=== PATIENT | male | born 1955 | race Caucasian/White ===

== ENCOUNTER 2020-06-10 07:04 | Outpatient (REF) | payer MEDICARE, SELFPAY ==
[2020-06-10 08:15] LABS: Glucose Fasting 112 mg/dL (60-99)
[2020-06-10 08:46] LABS: Thyroid Stimulating Hormone 5.22 mIU/mL (0.32-4.0)
[2020-06-10 09:21] LABS: T4 Thyroxine 6.6 ug/dL (4.5-12.0)
[2020-06-10 09:41] LABS: Estimated Average Glucose 126 mg/dL; Hemoglobin A1C 158.3794 umol/L
== END 2020-06-10 07:05 | disposition home or self-care (01) ==
LOC: HO.LAB 07:04
PROVIDERS: PCP Internal Medicine; Visit Provider Internal Medicine
DX: R73.02 Impaired glucose tolerance (oral) (principal); R94.6 Abnormal results of thyroid function studies
CPT/HCPCS: 82947; 83036; 84436; 84443

== ENCOUNTER 2021-02-25 11:59 | Emergency (ER) | payer MEDICARE, SELFPAY ==
[2021-02-25] VITALS (7 sets, daily range): BP systolic 120–162; BP diastolic 64–93; PULSE 63–70; RESP 14–16; TEMP 36.6–36.7; O2SAT 95–100; BMI 33.7
--- NOTE | ~2021-02-25 | CT_ITS ---
EXAMINATION: CT HEAD WITHOUT CONTRAST (STROKE PROTOCOL) CLINICAL INFORMATION: Stroke protocol. Centered on segment of dizziness. COMPARISON: None TECHNIQUE: Contiguous axial imaging was performed from the skull base to vertex without intravenous administration of contrast. This CT examination was performed using dose optimization techniques as appropriate, variously including the following: *Automated exposure control *Adjustment of mA and/or kV according to patient size (this includes techniques or standardized protocols for targeted exams where dose is matched to indication/reason for exam; i.e. extremities or head) *Use of iterative reconstruction technique DLP: 752 mGy-cm FINDINGS: There is no intracranial hemorrhage, hematoma, or extra-axial fluid collection. The ventricles are normal in size. There is no hydrocephalus, edema, or mass effect. The monk-white matter differentiation appears symmetric. There is no acute infarct or mass lesion. The calvarium appears intact. There is no pneumocephalus or orbital emphysema. The visualized sinuses and middle ears and mastoid air cells show no significant mucosal thickening. There are no air-fluid levels. CT/CT head for stroke IMPRESSION: No acute intracranial process seen.. This critical result was discussed with Agnes Chou at 1:08 hours on 02/25/2021. It was ascertained that the content and urgency of the report was understood at the time of direct communication.
--- NOTE | ~2021-02-25 | XR_ITS ---
EXAMINATION: XR CHEST CLINICAL INFORMATION: Dizziness. COMPARISON: None TECHNIQUE: Frontal view of the chest was obtained. FINDINGS: The lungs are clear. The cardiomediastinal silhouette is normal in size. There is no pleural effusion or pneumothorax. No acute osseous abnormality. XR/XR chest 1V IMPRESSION: No acute cardiopulmonary findings.
--- NOTE | ~2021-02-25 | MR_ITS ---
EXAMINATION: MR BRAIN WITHOUT CONTRAST CLINICAL INFORMATION: Patient with sudden onset dizziness unable to ambulate due to dizzy. COMPARISON: Head CT 02/25/2021. TECHNIQUE: Multiplanar, multisequence imaging of the brain was performed without intravenous contrast. FINDINGS: There is no acute infarction, hemorrhage, mass, or extra-axial fluid collection. The ventricles are normal in size without hydrocephalus. A few minimal nonspecific foci of T2/FLAIR hyperintensity are seen in the cerebral white matter. The cerebellar tonsils are normally positioned. The major arterial flow voids are preserved at the skull base. The orbital contents appear normal. There are small amount of fluid in the mastoids. Mild paranasal sinus mucosal thickening is seen. MR/MR head/brain wo con IMPRESSION: No acute infarct, mass lesion, intracranial hemorrhage, or evidence of hydrocephalus.
--- NOTE | ~2021-02-25 | CT_ITS ---
EXAMINATION: CT ANGIOGRAM NECK WITH CONTRAST CT ANGIOGRAM BRAIN WITH CONTRAST CLINICAL INFORMATION: Sudden onset dizziness. COMPARISON: Noncontrast head CT performed just prior. TECHNIQUE: Test bolus sequences followed by intravenous administration 70 mL of Omnipaque 350. Helical imaging was performed in the axial plane from the thoracic inlet to the skull vertex. Delayed postcontrast imaging of the head was also performed. The data was processed at the learning technologist workstation for generation of MIP sequences. Angled MIPs and volume rendered reformatted images were also generated at an offline 3D workstation. Stenoses are assessed in accordance with NASCET criteria unless otherwise indicated. This CT examination was performed using dose optimization techniques as appropriate, variously including the following: *Automated exposure control *Adjustment of mA and/or kV according to patient size (this includes techniques or standardized protocols for targeted exams where dose is matched to indication/reason for exam; i.e. extremities or head) *Use of iterative reconstruction technique DLP: 2356 mGy-cm FINDINGS: Head CT: There is no intracranial hemorrhage, extra-axial collection, mass effect, or CT evidence of territorial infarction. No abnormal enhancement is seen on the postcontrast images. The ventricles are normal in size without hydrocephalus. The dural venous sinuses are normally opacified. The extracranial structures are within normal limits. Neck CTA: The aortic arch is patent. The great vessel origins are patent. The bilateral common and internal carotid arteries are patent. No stenosis is seen at the carotid bifurcations. Both vertebral arteries are patent throughout their cervical course. The right vertebral artery is minimally dominant. Head CTA: Significant motion artifact is seen at the level of the jena of [place] as well as more superiorly limiting evaluation of the intracranial arteries. The intradural segments of both vertebral arteries are patent. The basilar artery is patent. The mottler operator are patent. Mild atheromatous changes are seen along the carotid siphons without significant stenosis. The ACAs are patent. The MCAs are patent with symmetric collaterals. Within the limits of motion artifact, no moderate or large aneurysm is seen. The dural venous sinuses appear grossly patent. Non-vascular findings: The cervical soft tissues are within normal limits. Bilateral palatine tonsilloliths are seen. A mildly enlarged right level 3 lymph node is seen. The upper lungs are clear. Mild degenerative changes are seen in the spine. CT/CT angio head neck stroke IMPRESSION: CT head: No intracranial hemorrhage or large acute infarction. No enhancing lesion. CTA neck: No hemodynamically significant stenosis in the major arteries of the neck. CTA head: Somewhat limited evaluation due to motion artifact. Within these limits, no occlusion, stenosis, or moderate or large sized aneurysm is seen. Additional findings: Incidentally noted mildly enlarged right level 3 lymph node. Consider clinical follow-up. This critical result was discussed with BISI Esparza on 02/25/2021 1:28 PM, and it was ascertained that the content and urgency of the report was understood at the time of direct communication.
--- NOTE | 2021-02-25 12:48 | ECG_ITS ---
Test Reason : DIZZINESS Blood Pressure : / mmHG Vent. Rate : 063 BPM Atrial Rate : 063 BPM P-R Int : 202 ms QRS Dur : 096 ms QT Int : 432 ms P-R-T Axes : -04 015 018 degrees QTc Int : 442 ms Normal sinus rhythm Normal ECG No previous ECGs available Referred By: Agnes Chou Electronically Signed By:Khang Crespo
--- NOTE | 2021-02-25 13:15 | ED_ITS ---
HPI - Dizziness General Chief Complaint: Dizziness <BISI Esparza Last Filed: 02/25/21 20:52> Stated Complaint: NAUSEA AND VOMITING <BISI Esparza Last Filed: 02/25/21 20:52> Time Seen by Provider: 02/25/21 12:41 <BISI Esparza Last Filed: 02/25/21 20:52> Source: patient and EMS <BISI Esparza Last Filed: 02/25/21 20:52> Mode of arrival: EMS <BISI Esparza Last Filed: 02/25/21 20:52> Limitations: no limitations <BISI Esparza Last Filed: 02/25/21 20:52> History of Present Illness HPI Narrative: 65-year-old male with a past medical history of BPH and obesity not on any blood thinners presenting to the ED via EMS after reports of sudden onset of dizziness while he was making a copy of a check while he was at work approximately 10:00 prior to arrival with associated nausea/vomiting. He reports that he feels like he is going to fall over. He reports that his symptoms improved mildly with laying down keeping his eyes closed. He reports once he opens his eyes or tries to stand up his dizziness worsens. He denies any headaches, recent head trauma or falls, changes in vision, neck pain/stiffness, chest pain, shortness of breath, dyspnea on exertion, orthopnea, chest pain, abdominal pain, back pain, palpitations, lower extremity edema or any other symptoms complaints or concerns at this time. He denies taking any medications. <BISI Esparza Last Filed: 02/25/21 20:52> MD elicited complaint: dizziness <BISI Esparza Last Filed: 02/25/21 20:52> Onset (ago): hour(s) (Started around 10:00 prior to arrival) <BISI Esparza Last Filed: 02/25/21 20:52> Timing: sudden onset <BISI Esparza Last Filed: 02/25/21 20:52> Severity: severe <BISI Esparza Last Filed: 02/25/21 20:52> Description: sense of movement, room spinning and lightheadedness <BISI Esparza Last Filed: 02/25/21 20:52> History of similar symptoms: No <BISI Esparza Last Filed: 02/25/21 20:52> Exacerbating factors: keeping eyes open <BISI Esparza Last Filed: 02/25/21 20:52> Relieving factors: remaining still, rest, lying down and keeping eyes closed <BISI Esparza Last Filed: 02/25/21 20:52> Associated symptoms: nausea and vomiting <BISI Esparza Last Filed: 02/25/21 20:52> Related Data Home Medications: Previous Rx's Medication Instructions Recorded ferrous sulfate 325 mg PO DAILY #30 tab 02/25/21 meclizine 50 mg PO DAILY PRN #20 tab 02/25/21 ondansetron HCl [Zofran] 4 mg PO Q8H PRN #14 tab 02/25/21 <BISI Esparza Last Filed: 02/25/21 20:52> Allergies/Adverse Reactions: Allergies Allergy/AdvReac Type Severity Reaction Status Date / Time No Known Allergies Allergy Verified 06/16/20 09:19 <BISI Esparza Last Filed: 02/25/21 20:52> Review of Systems Review of Systems: Constitutional : No Fever, No Chills, No Night Sweats, No Fatigue, No Malaise ENT/Mouth : No Ear Pain, No Nasal Congestion, No Sinus Pain, No sore throat, No Rhinorrhea Eyes: No Eye Pain, No Swelling, No Redness, No Foreign Body, No Discharge, No Vision Changes Cardiovascular : No Chest Pain, No SOB, No Dyspnea on Exertion, No Orthopnea, No Palpitations Respiratory : No Cough, No Sputum, No Wheezing, No Dyspnea Gastrointestinal : Positive nausea/vomiting, No Diarrhea, No Constipation, No abdominal Pain, No Hematochezia, No Melena Genitourinary : No Dysuria, No Urinary Frequency, No Urinary Incontinence, No Urgency, No Flank Pain Musculoskeletal : No joint pain, No Myalgias Skin : No lacerations Neuro : Positive dizziness, No Focal weakness, no general weakness, No Numbness, No Paresthesias, No Loss of Consciousness, No Headache <BISI Esparza Last Filed: 02/25/21 20:52> Yes all other systems are reviewed and are negative <BISI Esparza - Last Filed: 02/25/21 20:52> [facility] Past Medical History Attestation statement: The following information was validated with the patient. <BISI Esparza - Last Filed: 02/25/21 20:52> Medical History: Medical History BPH (benign prostatic hyperplasia) Obesity (BMI 30-39.9) <BISI Esparza - Last Filed: 02/25/21 20:52> Surgical History: Surgical History No pertinent past surgical history <BISI Esparza - Last Filed: 02/25/21 20:52> Family History Family History: Family History Father No problems noted. Mother Hypertension Diabetes Sister Breast cancer <BISI Esparza - Last Filed: 02/25/21 20:52> Social History Social History: Social History Advance Directives: Yes Advance Directives Information Provided: Yes Advance Directives on File: No <BISI Esparza - Last Filed: 02/25/21 20:52> Physical Exam Vital Signs: Vital Signs: Last Vital Signs Temp 98.0 F 02/25/21 18:40 Pulse 67 02/25/21 18:40 Resp 14 02/25/21 18:40 BP 146/80 H 02/25/21 18:40 Pulse Ox 98 02/25/21 18:40 Body Mass Index 33.7 Vital signs have been reviewed as normal and appeared to be correct. Blood pressure normal. Heart rate normal. Respiration rate normal. Temperature normal. Oxygen saturation normal. <BISI Esparza - Last Filed: 02/25/21 20:52> Vital Signs: Last Vital Signs Temp 98.0 F 02/25/21 18:40 Pulse 67 02/25/21 18:40 Resp 14 02/25/21 18:40 BP 146/80 H 02/25/21 18:40 Pulse Ox 98 02/25/21 18:40 Body Mass Index 33.7 <Cm Miller MD - Last Filed: 02/25/21 13:33> Appearance: Alert. Oriented X3. No acute distress. Head: Normal external exam. Normocephalic. Atraumatic. Able to rotate head bilaterally. Eyes: PERRLA. EOMI. Positive horizontal nystagmus noted. Conjunctiva and sclera normal. Eyelids normal. Corneal reflex normal. ENT: EAC normal. TM's Normal. Hearing normal. Pharynx normal. Uvula midline. tongue midline. Moist mucous membranes. No trismus noted. No drooling noted. No muffled voice noted. No nystagmus noted. Neck: Normal inspection. Neck supple. FROM. No adenopathy. Trachea midline. Thyroid Normal. No meningeal signs. No neck mass noted. CVS: Normal heart rate and rhythm. Heart sound normal. No murmurs noted. Pulses normal throughout. Respiratory: No respiratory distress. Painless inspiration. Breath sounds normal. No wheezes/rales/rhonchi noted. Chest nontender. No accessory muscle usage noted or decreased air movement noted. Abdomen: Soft and nontender. Bowel sounds normal in all 4 quadrants. No distention noted. No organomegaly noted. No visible injury noted. Back: No CVA tenderness. Full range of motion noted. Skin: Skin warm and dry. Normal skin color. Normal skin turgor. No rashes/lesions/lacerations noted. Extremities: No lower extremity edema. Extremities exhibit normal range of motion. Extremities nontender. Able to shrug shoulders bilaterally and keep up against resistance. Neuro: Oriented X 3. No motor deficit. No sensory deficit. Reflexes normal. Moving all extremities. No focal motor deficits. Cranial nerves II-XI intact bilaterally. Facial strength normal. Normal cognition. Speech normal. Strength 5/5 throughout. No pronator drift. No tremor noted. No fasciculations noted. No rigidity noted. Muscle tone normal throughout. No asterixis noted. [id number] test normal. Heel to mena test normal. Hand drop from overhead Misses face. Unable to test gait due to patient reporting he is too dizzy to stand up and open his eyes to try to ambulate. NIHSS score 0. <BISI Esparza - Last Filed: 02/25/21 20:52> NIH Stroke Scale Internal: Initial- Upon Arrival <Agnes Chou PA - Last Filed: 02/25/21 20:52> Time: 12:48 <Agnes Chou PA - Last Filed: 02/25/21 20:52> Level of Consciousness: Alert <Agnes Chou PA - Last Filed: 02/25/21 20:52> Level of Consciousness Questions: Answers both questions correctly <Agnes Chou PA - Last Filed: 02/25/21 20:52> Level of Consciousness Commands: Performs both tasks correctly <Agnesino Chou PA - Last Filed: 02/25/21 20:52> Best Gaze: Normal <Agnes Chou PA - Last Filed: 02/25/21 20:52> Visual: No visual loss <Agnes Chou PA - Last Filed: 02/25/21 20:52> Facial Palsy: Normal <Agnes Chou PA - Last Filed: 02/25/21 20:52> Motor Arm (Right): No drift <Agnesino Chou PA - Last Filed: 02/25/21 20:52> Motor Arm (Left): No drift <Agnes Chou, PA - Last Filed: 02/25/21 20:52> Motor Leg (Right): No drift <Agnes Chou, PA - Last Filed: 02/25/21 20:52> Motor Leg (Left): No drift <Agnes Chou, PA - Last Filed: 02/25/21 20:52> Limb Ataxia: Absent <Agnes Chou PA - Last Filed: 02/25/21 20:52> Sensory: Normal <Agnes Chou, PA - Last Filed: 02/25/21 20:52> Best Language: No aphasia <Agnes Chou PA - Last Filed: 02/25/21 20:52> Dysarthia: Normal <Agnes Chou PA - Last Filed: 02/25/21 20:52> Extinction and Inattention: No abnormality <Agnes Chou PA - Last Filed: 02/25/21 20:52> Score: 0 <Agnes Chou PA - Last Filed: 02/25/21 20:52> Course Course Course Narrative: 12:48am - 65-year-old male with a past medical history of BPH and obesity not on any blood thinners presenting to the ED via EMS after reports of sudden onset of dizziness while he was making a copy of a check while he was at work approximately 10:00 prior to arrival with associated nausea/vomiting. He reports that he feels like he is going to fall over. He reports that his symptoms improved mildly with laying down keeping his eyes closed. He reports once he opens his eyes or tries to stand up his dizziness worsens. - On Exam patient is alert and oriented x3. Not in any acute distress. Laying on the stretcher with his eyes closed pupils are equal and reactive to light. Extraocular movements are intact. Noted to have horizontal nystagmus. No focal neuro deficits are noted. NIH SS score is otherwise 0. Patient has non disabling symptoms patient has a normal heel to mena test and the rest of his neuro exam is within normal limits. Plan: Labs, CT brain for strok, CTA head/neck for stroke, EKG. Provide a L of IVF's, 50mg of meclizine, 5 mg of Valium PO, 4 mg of Zofran then re-evaluate <BISI Esparza - Last Filed: 02/25/21 20:52> Reevaluation(s) Reevaluation #1: - CT head of brain for stroke negative for any acute processes. CTA of head and neck for stroke negative for any acute processes. - EKG is normal sinus rhythm no acute ischemic change are noted. - chest x-ray within normal limits no acute processes noted. - awaiting labs at this time patient most likely positional vertigo will re- evaluate. <BISI Esparza - Last Filed: 02/25/21 20:52> I have discussed the case and management with the LUIS MIGUEL. Patient with positive horizontal nystagmus and barrone. Will treat as BPV. <Cm Miller MD - Last Filed: 02/25/21 13:33> Time: 13:35 <BISI Esparza - Last Filed: 02/25/21 20:52> 13:32 <Cm Miller MD - Last Filed: 02/25/21 13:33> Reevaluation #2: - white blood cell count 26038. Mild anemia. All other labs are within normal limits. COVID swab negative. - orthostatic vitals negative - at this time patient reported mild improvement with the meclizine/Valium and Zofran although when trying to ambulate the patient he felt like he was going to fall over and was unable to ambulate therefore laid him back down and at this time will obtain a brain MRI to evaluate possible stroke versus vertigo although I believe this is more vertigo than stroke due to CT scan of brain and CTA of head and neck were within normal limits and patient had pain in wide vasculature. Patient and family at bedside understand and agree with this plan. <BISI Esparza - Last Filed: 02/25/21 20:52> Time: 14:44 <BISI Esparza - Last Filed: 02/25/21 20:52> Reevaluation #3: - MRI of brain negative for any acute infarcts, mass lesions, intracranial hemorrhage or evidence of hydrocephalus. Therefore most likely patient has ve rtigo will DC home with meclizine and symptomatic treatment instructions return if any new or worsening symptoms to follow up with primary care provider. Patient understands agrees with this plan <BISI Esparza - Last Filed: 02/25/21 20:52> Time: 20:42 <BISI Esparza - Last Filed: 02/25/21 20:52> MDM - Dizziness Medical Records Attestation: I reviewed the patient's medical records. <BISI Esparza - Last Filed: 02/25/21 20:52> Lab Data Attestation: I reviewed the patient's lab results. <BISI Esparza - Last Filed: 02/25/21 20:52> Result diagrams: : 02/25/21 13:29 02/25/21 13:29 <BISI Esparza - Last Filed: 02/25/21 20:52> Labs: Lab Results 02/25/21 02/25/21 02/25/21 Range/Units 13:29 13:29 13:29 WBC 12.1 H (4.8-10.8) X10*3/uL RBC 4.38 L (4.60-5.80) X10*6/uL Hgb 13.4 L (14.0-18.0) g/dl Hct 41.0 L (42-52) % MCV 93.6 (80-98) fL MCH 30.6 (27.0-33.0) pg MCHC 32.7 (31.0-36.0) g/dl RDW 13.6 (11.0-16.0) % Plt Count 270 (160-400) X10*3/uL MPV 9.7 (9.4-12.4) fL Immature Gran % (Auto) 0.7 H (0.0-0.4) % Neut % (Auto) 80.8 H (45-73) % Lymph % (Auto) 10.4 L (20-40) % [place] % (Auto) 6.9 (2-11) % Eos % (Auto) 0.7 (0-4) % Baso % (Auto) 0.5 (0-2) % Lymph # (Auto) 1.3 (1.2-4.9) X10*3/uL [place] # (Auto) 0.8 (0.1-1.2) X10*3/uL Eos # (Auto) 0.1 (0.0-0.4) X10*3/uL Baso # (Auto) 0.1 (0.0-0.2) X10*3/uL Abs Immat Gran (auto) 0.08 H (0.00-0.03) X10*3/uL Absolute Neuts (auto) 9.8 H (2.0-8.3) X10*3/uL Absolute Nucleated RBC 0.000 (0.0-0.012) X10*3/uL Nucleated RBC % (auto) 0.0 (0.0-0.2) /100WBC PT 12.3 (9.9-13.0) SEC INR 1.1 (0.9-1.1) Sodium (135-145) mmol/L Potassium (3.3-5.1) mmol/L Chloride (96-108) mmol/L Carbon Dioxide (22-29) mmol/L Anion Gap (12-20) BUN (9-16) mg/dL Creatinine (0.5-1.4) mg/dL Estim Creat Clear Calc Estimated GFR Random Glucose (60-115) mg/dL Calcium (8.4-10.2) mg/dL Magnesium 2.2 (1.6-2.6) mg/dL Total Bilirubin (0.0-1.0) mg/dL AST (5-37) U/L ALT (0-40) U/L Alkaline Phosphatase (39-117) U/L Troponin I High Sens (<3.5-35.0) ng/L B-Natriuretic Peptide (<100) pg/mL Total Protein (6.5-8.0) g/dL Albumin (3.5-5.0) g/dL Urine Color Urine Appearance Urine pH (5.0-8.0) Ur Specific [place] (1.005-1.025) Urine Protein (NEG-TRACE) MG/DL Urine Glucose (UA) (NEG) MG/DL Urine Ketones (NEG) MG/DL Urine Blood (NEG) Urine Nitrite (NEG) Ur Leukocyte Esterase (NEG) Urine Opiates Screen (Not Detect) Ur Barbiturates Screen (Not Detect) Ur Phencyclidine Scrn (Not Detect) Ur Amphetamines Screen (Not Detect) U Benzodiazepines Scrn (Not Detect) Urine Cocaine Screen (Not Detect) U Marijuana (THC) Screen (Not Detect) COVID-19 ([facility]) (Negative) COVID-19 Clin Com 02/25/21 02/25/21 02/25/21 Range/Units 13:29 13:29 13:29 WBC (4.8-10.8) X10*3/uL RBC (4.60-5.80) X10*6/uL Hgb (14.0-18.0) g/dl Hct (42-52) % MCV (80-98) fL MCH (27.0-33.0) pg MCHC (31.0-36.0) g/dl RDW (11.0-16.0) % Plt Count (160-400) X10*3/uL MPV (9.4-12.4) fL Immature Gran % (Auto) (0.0-0.4) % Neut % (Auto) (45-73) % Lymph % (Auto) (20-40) % [place] % (Auto) (2-11) % Eos % (Auto) (0-4) % Baso % (Auto) (0-2) % Lymph # (Auto) (1.2-4.9) X10*3/uL [place] # (Auto) (0.1-1.2) X10*3/uL Eos # (Auto) (0.0-0.4) X10*3/uL Baso # (Auto) (0.0-0.2) X10*3/uL Abs Immat Gran (auto) (0.00-0.03) X10*3/uL Absolute Neuts (auto) (2.0-8.3) X10*3/uL Absolute Nucleated RBC (0.0-0.012) X10*3/uL Nucleated RBC % (auto) (0.0-0.2) /100WBC PT (9.9-13.0) SEC INR (0.9-1.1) Sodium 138 (135-145) mmol/L Potassium 4.2 (3.3-5.1) mmol/L Chloride 107 (96-108) mmol/L Carbon Dioxide 23 (22-29) mmol/L Anion Gap 12 (12-20) BUN 14 (9-16) mg/dL Creatinine 0.95 (0.5-1.4) mg/dL Estim Creat Clear Calc 92.2 Estimated GFR > 60 Random Glucose 105 (60-115) mg/dL Calcium 8.7 (8.4-10.2) mg/dL Magnesium (1.6-2.6) mg/dL Total Bilirubin 0.5 (0.0-1.0) mg/dL AST 14 (5-37) U/L ALT 13 (0-40) U/L Alkaline Phosphatase 64 (39-117) U/L Troponin I High Sens < 3.5 (<3.5-35.0) ng/L B-Natriuretic Peptide 25 (<100) pg/mL Total Protein 6.5 (6.5-8.0) g/dL Albumin 3.7 (3.5-5.0) g/dL Urine Color Urine Appearance Urine pH (5.0-8.0) Ur Specific [place] (1.005-1.025) Urine Protein (NEG-TRACE) MG/DL Urine Glucose (UA) (NEG) MG/DL Urine Ketones (NEG) MG/DL Urine Blood (NEG) Urine Nitrite (NEG) Ur Leukocyte Esterase (NEG) Urine Opiates Screen (Not Detect) Ur Barbiturates Screen (Not Detect) Ur Phencyclidine Scrn (Not Detect) Ur Amphetamines Screen (Not Detect) U Benzodiazepines Scrn (Not Detect) Urine Cocaine Screen (Not Detect) U Marijuana (THC) Screen (Not Detect) COVID-19 ([facility]) (Negative) COVID-19 Clin Com 02/25/21 02/25/21 02/25/21 Range/Units 13:29 14:30 14:30 WBC (4.8-10.8) X10*3/uL RBC (4.60-5.80) X10*6/uL Hgb (14.0-18.0) g/dl Hct (42-52) % MCV (80-98) fL MCH (27.0-33.0) pg MCHC (31.0-36.0) g/dl RDW (11.0-16.0) % Plt Count (160-400) X10*3/uL MPV (9.4-12.4) fL Immature Gran % (Auto) (0.0-0.4) % Neut % (Auto) (45-73) % Lymph % (Auto) (20-40) % [place] % (Auto) (2-11) % Eos % (Auto) (0-4) % Baso % (Auto) (0-2) % Lymph # (Auto) (1.2-4.9) X10*3/uL [place] # (Auto) (0.1-1.2) X10*3/uL Eos # (Auto) (0.0-0.4) X10*3/uL Baso # (Auto) (0.0-0.2) X10*3/uL Abs Immat Gran (auto) (0.00-0.03) X10*3/uL Absolute Neuts (auto) (2.0-8.3) X10*3/uL Absolute Nucleated RBC (0.0-0.012) X10*3/uL Nucleated RBC % (auto) (0.0-0.2) /100WBC PT (9.9-13.0) SEC INR (0.9-1.1) Sodium (135-145) mmol/L Potassium (3.3-5.1) mmol/L Chloride (96-108) mmol/L Carbon Dioxide (22-29) mmol/L Anion Gap (12-20) BUN (9-16) mg/dL Creatinine (0.5-1.4) mg/dL Estim Creat Clear Calc Estimated GFR Random Glucose (60-115) mg/dL Calcium (8.4-10.2) mg/dL Magnesium (1.6-2.6) mg/dL Total Bilirubin (0.0-1.0) mg/dL AST (5-37) U/L ALT (0-40) U/L Alkaline Phosphatase (39-117) U/L Troponin I High Sens (<3.5-35.0) ng/L B-Natriuretic Peptide (<100) pg/mL Total Protein (6.5-8.0) g/dL Albumin (3.5-5.0) g/dL Urine Color YELLOW Urine Appearance CLEAR Urine pH 7.0 (5.0-8.0) Ur Specific [place] 1.010 (1.005-1.025) Urine Protein NEG (NEG-TRACE) MG/DL Urine Glucose (UA) NEG (NEG) MG/DL Urine Ketones NEG (NEG) MG/DL Urine Blood NEG (NEG) Urine Nitrite NEG (NEG) Ur Leukocyte Esterase NEG (NEG) Urine Opiates Screen Not Detected (Not Detect) Ur Barbiturates Screen Not Detected (Not Detect) Ur Phencyclidine Scrn Not Detected (Not Detect) Ur Amphetamines Screen Not Detected (Not Detect) U Benzodiazepines Scrn Not Detected (Not Detect) Urine Cocaine Screen Not Detected (Not Detect) U Marijuana (THC) Screen Not Detected (Not Detect) COVID-19 ([facility]) Negative (Negative) COVID-19 Clin Com See Note <BISI Esparza - Last Filed: 02/25/21 20:52> Lab Results 02/25/21 02/25/21 02/25/21 Range/Units 13:29 13:29 13:29 WBC 12.1 H (4.8-10.8) X10*3/uL RBC 4.38 L (4.60-5.80) X10*6/uL Hgb 13.4 L (14.0-18.0) g/dl Hct 41.0 L (42-52) % MCV 93.6 (80-98) fL MCH 30.6 (27.0-33.0) pg MCHC 32.7 (31.0-36.0) g/dl RDW 13.6 (11.0-16.0) % Plt Count 270 (160-400) X10*3/uL MPV 9.7 (9.4-12.4) fL Immature Gran % (Auto) 0.7 H (0.0-0.4) % Neut % (Auto) 80.8 H (45-73) % Lymph % (Auto) 10.4 L (20-40) % [place] % (Auto) 6.9 (2-11) % Eos % (Auto) 0.7 (0-4) % Baso % (Auto) 0.5 (0-2) % Lymph # (Auto) 1.3 (1.2-4.9) X10*3/uL [place] # (Auto) 0.8 (0.1-1.2) X10*3/uL Eos # (Auto) 0.1 (0.0-0.4) X10*3/uL Baso # (Auto) 0.1 (0.0-0.2) X10*3/uL Abs Immat Gran (auto) 0.08 H (0.00-0.03) X10*3/uL Absolute Neuts (auto) 9.8 H (2.0-8.3) X10*3/uL Absolute Nucleated RBC 0.000 (0.0-0.012) X10*3/uL Nucleated RBC % (auto) 0.0 (0.0-0.2) /100WBC PT 12.3 (9.9-13.0) SEC INR 1.1 (0.9-1.1) Sodium (135-145) mmol/L Potassium (3.3-5.1) mmol/L Chloride (96-108) mmol/L Carbon Dioxide (22-29) mmol/L Anion Gap (12-20) BUN (9-16) mg/dL Creatinine (0.5-1.4) mg/dL Estim Creat Clear Calc Estimated GFR Random Glucose (60-115) mg/dL Calcium (8.4-10.2) mg/dL Magnesium 2.2 (1.6-2.6) mg/dL Total Bilirubin (0.0-1.0) mg/dL AST (5-37) U/L ALT (0-40) U/L Alkaline Phosphatase (39-117) U/L Troponin I High Sens (<3.5-35.0) ng/L B-Natriuretic Peptide (<100) pg/mL Total Protein (6.5-8.0) g/dL Albumin (3.5-5.0) g/dL Urine Color Urine Appearance Urine pH (5.0-8.0) Ur Specific [place] (1.005-1.025) Urine Protein (NEG-TRACE) MG/DL Urine Glucose (UA) (NEG) MG/DL Urine Ketones (NEG) MG/DL Urine Blood (NEG) Urine Nitrite (NEG) Ur Leukocyte Esterase (NEG) Urine Opiates Screen (Not Detect) Ur Barbiturates Screen (Not Detect) Ur Phencyclidine Scrn (Not Detect) Ur Amphetamines Screen (Not Detect) U Benzodiazepines Scrn (Not Detect) Urine Cocaine Screen (Not Detect) U Marijuana (THC) Screen (Not Detect) COVID-19 ([facility]) (Negative) COVID-19 Clin Com 02/25/21 02/25/21 02/25/21 Range/Units 13:29 13:29 13:29 WBC (4.8-10.8) X10*3/uL RBC (4.60-5.80) X10*6/uL Hgb (14.0-18.0) g/dl Hct (42-52) % MCV (80-98) fL MCH (27.0-33.0) pg MCHC (31.0-36.0) g/dl RDW (11.0-16.0) % Plt Count (160-400) X10*3/uL MPV (9.4-12.4) fL Immature Gran % (Auto) (0.0-0.4) % Neut % (Auto) (45-73) % Lymph % (Auto) (20-40) % [place] % (Auto) (2-11) % Eos % (Auto) (0-4) % Baso % (Auto) (0-2) % Lymph # (Auto) (1.2-4.9) X10*3/uL [place] # (Auto) (0.1-1.2) X10*3/uL Eos # (Auto) (0.0-0.4) X10*3/uL Baso # (Auto) (0.0-0.2) X10*3/uL Abs Immat Gran (auto) (0.00-0.03) X10*3/uL Absolute Neuts (auto) (2.0-8.3) X10*3/uL Absolute Nucleated RBC (0.0-0.012) X10*3/uL Nucleated RBC % (auto) (0.0-0.2) /100WBC PT (9.9-13.0) SEC INR (0.9-1.1) Sodium 138 (135-145) mmol/L Potassium 4.2 (3.3-5.1) mmol/L Chloride 107 (96-108) mmol/L Carbon Dioxide 23 (22-29) mmol/L Anion Gap 12 (12-20) BUN 14 (9-16) mg/dL Creatinine 0.95 (0.5-1.4) mg/dL Estim Creat Clear Calc 92.2 Estimated GFR > 60 Random Glucose 105 (60-115) mg/dL Calcium 8.7 (8.4-10.2) mg/dL Magnesium (1.6-2.6) mg/dL Total Bilirubin 0.5 (0.0-1.0) mg/dL AST 14 (5-37) U/L ALT 13 (0-40) U/L Alkaline Phosphatase 64 (39-117) U/L Troponin I High Sens < 3.5 (<3.5-35.0) ng/L B-Natriuretic Peptide 25 (<100) pg/mL Total Protein 6.5 (6.5-8.0) g/dL Albumin 3.7 (3.5-5.0) g/dL Urine Color Urine Appearance Urine pH (5.0-8.0) Ur Specific [place] (1.005-1.025) Urine Protein (NEG-TRACE) MG/DL Urine Glucose (UA) (NEG) MG/DL Urine Ketones (NEG) MG/DL Urine Blood (NEG) Urine Nitrite (NEG) Ur Leukocyte Esterase (NEG) Urine Opiates Screen (Not Detect) Ur Barbiturates Screen (Not Detect) Ur Phencyclidine Scrn (Not Detect) Ur Amphetamines Screen (Not Detect) U Benzodiazepines Scrn (Not Detect) Urine Cocaine Screen (Not Detect) U Marijuana (THC) Screen (Not Detect) COVID-19 ([facility]) (Negative) COVID-19 Clin Com 02/25/21 02/25/21 02/25/21 Range/Units 13:29 14:30 14:30 WBC (4.8-10.8) X10*3/uL RBC (4.60-5.80) X10*6/uL Hgb (14.0-18.0) g/dl Hct (42-52) % MCV (80-98) fL MCH (27.0-33.0) pg MCHC (31.0-36.0) g/dl RDW (11.0-16.0) % Plt Count (160-400) X10*3/uL MPV (9.4-12.4) fL Immature Gran % (Auto) (0.0-0.4) % Neut % (Auto) (45-73) % Lymph % (Auto) (20-40) % [place] % (Auto) (2-11) % Eos % (Auto) (0-4) % Baso % (Auto) (0-2) % Lymph # (Auto) (1.2-4.9) X10*3/uL [place] # (Auto) (0.1-1.2) X10*3/uL Eos # (Auto) (0.0-0.4) X10*3/uL Baso # (Auto) (0.0-0.2) X10*3/uL Abs Immat Gran (auto) (0.00-0.03) X10*3/uL Absolute Neuts (auto) (2.0-8.3) X10*3/uL Absolute Nucleated RBC (0.0-0.012) X10*3/uL Nucleated RBC % (auto) (0.0-0.2) /100WBC PT (9.9-13.0) SEC INR (0.9-1.1) Sodium (135-145) mmol/L Potassium (3.3-5.1) mmol/L Chloride (96-108) mmol/L Carbon Dioxide (22-29) mmol/L Anion Gap (12-20) BUN (9-16) mg/dL Creatinine (0.5-1.4) mg/dL Estim Creat Clear Calc Estimated GFR Random Glucose (60-115) mg/dL Calcium (8.4-10.2) mg/dL Magnesium (1.6-2.6) mg/dL Total Bilirubin (0.0-1.0) mg/dL AST (5-37) U/L ALT (0-40) U/L Alkaline Phosphatase (39-117) U/L Troponin I High Sens (<3.5-35.0) ng/L B-Natriuretic Peptide (<100) pg/mL Total Protein (6.5-8.0) g/dL Albumin (3.5-5.0) g/dL Urine Color YELLOW Urine Appearance CLEAR Urine pH 7.0 (5.0-8.0) Ur Specific [place] 1.010 (1.005-1.025) Urine Protein NEG (NEG-TRACE) MG/DL Urine Glucose (UA) NEG (NEG) MG/DL Urine Ketones NEG (NEG) MG/DL Urine Blood NEG (NEG) Urine Nitrite NEG (NEG) Ur Leukocyte Esterase NEG (NEG) Urine Opiates Screen Not Detected (Not Detect) Ur Barbiturates Screen Not Detected (Not Detect) Ur Phencyclidine Scrn Not Detected (Not Detect) Ur Amphetamines Screen Not Detected (Not Detect) U Benzodiazepines Scrn Not Detected (Not Detect) Urine Cocaine Screen Not Detected (Not Detect) U Marijuana (THC) Screen Not Detected (Not Detect) COVID-19 ([facility]) Negative (Negative) COVID-19 Clin Com See Note <Cm Miller MD - Last Filed: 02/25/21 13:33> Imaging Data CT scan - head: Attestation: I personally reviewed and interpreted this imaging study as follows: <BISI Esparza - Last Filed: 02/25/21 20:52> Radiologist's impression: FINDINGS: There is no intracranial hemorrhage, hematoma, or extra-axial fluid collection. The ventricles are normal in size. There is no hydrocephalus, edema, or mass effect. The monk-white matter differentiation appears symmetric. There is no acute infarct or mass lesion. The calvarium appears intact. There is no pneumocephalus or orbital emphysema. The visualized sinuses and middle ears and mastoid air cells show no significant mucosal thickening. There are no air-fluid levels. CT/CT head for stroke IMPRESSION: No acute intracranial process seen.. This critical result was discussed with Agnes Chou at 1:08 hours on 02/25/2021. It was ascertained that the content and urgency of the report was understood at the time of direct communication. <BISI Esparza - Last Filed: 02/25/21 20:52> Chest x-ray: Attestation: I personally reviewed and interpreted this imaging study as follows: <BISI Esparza - Last Filed: 02/25/21 20:52> Radiologist's impression: FINDINGS: The lungs are clear. The cardiomediastinal silhouette is normal in size. There is no pleural effusion or pneumothorax. No acute osseous abnormality. XR/XR chest 1V IMPRESSION: No acute cardiopulmonary findings. <BISI Esparza - Last Filed: 02/25/21 20:52> MRI of brain without contrast: Attestation: I personally reviewed and interpreted this imaging study as follows: <BISI Esparza - Last Filed: 02/25/21 20:52> Radiologist's impression: FINDINGS: There is no acute infarction, hemorrhage, mass, or extra-axial fluid collection. The ventricles are normal in size without hydrocephalus. A few minimal nonspecific foci of T2/FLAIR hyperintensity are seen in the cerebral white matter. The cerebellar tonsils are normally positioned. The major arterial flow voids are preserved at the skull base. The orbital contents appear normal. There are small amount of fluid in the mastoids. Mild paranasal sinus mucosal thickening is seen. MR/MR head/brain wo con IMPRESSION: No acute infarct, mass lesion, intracranial hemorrhage, or evidence of hydrocephalus. <BISI Esparza - Last Filed: 02/25/21 20:52> ECG Data Attestation: I personally reviewed and interpreted this ECG as follows: <Edwina Esparza - Last Filed: 02/25/21 20:52> ECG interpretation date: 02/25/21 <BISI Esparza - Last Filed: 02/25/21 20:52> ECG interpretation time: 13:23 <BISI Esparza Last Filed: 02/25/21 20:52> Interpretation: NSR with ventricular rate of 63 with a normal WV interval normal QRS duration normal QT/QTC interval. No acute ischemic changes are noted. <BISI Esparza - Last Filed: 02/25/21 20:52> Critical Care Time Critical Care Time Critical Care Time: Yes <BISI Esparza Last Filed: 02/25/21 20:52> Total Critical Care Time: 60 <BISI Esparza Last Filed: 02/25/21 20:52> Attestation: I personally attest to this time spent taking care of the patient <BISI Esparza Last Filed: 02/25/21 20:52> Discharge Plan Discharge Clinical Impression: Vertigo, Anemia <BISI Esparza Last Filed: 02/25/21 20:52> Patient Disposition: Home, Self-Care <BISI Esparza Last Filed: 02/25/21 20:52> Instructions: Vertigo (ED), Benign Paroxysmal Positional Vertigo (ED), Anemia (ED) <BISI Esparza Last Filed: 02/25/21 20:52> Prescriptions: New ondansetron HCl [Zofran] 4 mg tablet 4 mg PO Q8H PRN (Reason: nausea and vomiting) Qty: 14 RF: 0 meclizine 25 mg tablet 50 mg PO DAILY PRN (Reason: dizziness) Qty: 20 RF: 0 ferrous sulfate 325 mg (65 mg iron) tablet 325 mg PO DAILY Qty: 30 RF: 0 <BISI Esparza Last Filed: 02/25/21 20:52> Referrals: Physician,None [Primary Care Provider] - 2 days (your pcp) Deepa Garvey MD [Physician] - 2 weeks (vertigo ) Fede Chua MD [Physician] - 2 days <BISI Esparza Last Filed: 02/25/21 20:52> Print Language: Slovenian <BSII Esparza Last Filed: 02/25/21 20:52>
[2021-02-25] MEDS: diazePAM 5 MG TABLET PO (13:21)
[2021-02-25] MEDS: 0.9 % Sodium Chloride 1,000 ML 999 ML IVCONT (13:21)
[2021-02-25] MEDS: ondansetron HCL 4 MG/2 ML VIAL IVPUSH (13:21)
[2021-02-25] MEDS: Meclizine HCl 25 MG TABLET 50 MG PO (13:21)
[2021-02-25 13:40] LABS: MANUAL DIFF FLAG NO
[2021-02-25 13:44] LABS: Basophils Absolute Auto 0.1 X10*3/uL (0.0-0.2); Basophils Percent Auto 0.5 % (0-2); Eosinophils Absolute Auto 0.1 X10*3/uL (0.0-0.4); Eosinophils Percent Auto 0.7 % (0-4); Hemoglobin 13.4 g/dl (14.0-18.0); Imm Gran Abs Auto 0.08 X10*3/uL (0.00-0.03); Imm Gran Pct Auto 0.7 % (0.0-0.4); Lymphocytes Absolute Auto 1.3 X10*3/uL (1.2-4.9); Lymphocytes Percent Auto 10.4 % (20-40); Mean Corpuscular HGB Conc 32.7 g/dl (31.0-36.0); Mean Corpuscular Hemoglobin 30.6 pg (27.0-33.0); Mean Corpuscular Volume 93.6 fL (80-98); Mean Platelet Volume 9.7 fL (9.4-12.4); Monocytes Absolute Auto 0.8 X10*3/uL (0.1-1.2); Monocytes Percent Auto 6.9 % (2-11); Neutrophils Absolute Auto 9.8 X10*3/uL (2.0-8.3); Neutrophils Percent Auto 80.8 % (45-73); Platelet Count 270 X10*3/uL (160-400); Red Blood Count 4.38 X10*6/uL (4.60-5.80); Red Cell Distribution Width 13.6 % (11.0-16.0); White Blood Count 12.1 X10*3/uL (4.8-10.8)
[2021-02-25 13:58] LABS: COVID-19 Test Negative (Negative); IDNOW Serial# 9DD0AD1C
[2021-02-25 14:09] LABS: INTERNATIONAL NORM RATIO 1.1 (0.9-1.1); Prothrombin Time 12.3 SEC (9.9-13.0)
[2021-02-25 14:12] LABS: Alanine Aminotransferase 13 U/L (0-40); Albumin Level 3.7 g/dL (3.5-5.0); Alkaline Phosphatase 64 U/L (39-117); Anion Gap 12 (12-20); Aspartate Amino Transferase 14 U/L (5-37); Bilirubin Total 0.5 mg/dL (0.0-1.0); Blood Urea Nitrogen 14 mg/dL (9-16); Calcium 8.7 mg/dL (8.4-10.2); Carbon Dioxide 23 mmol/L (22-29); Chloride 107 mmol/L (96-108); Creatinine Clr Calc Pharmacy 92.2; Estimated Glomerular Filt Rate > 60; Glucose Random 105 mg/dL (60-115); Magnesium 2.2 mg/dL (1.6-2.6); Potassium 4.2 mmol/L (3.3-5.1); Sodium 138 mmol/L (135-145); Total Protein 6.5 g/dL (6.5-8.0)
[2021-02-25 14:14] LABS: B Type Natriuretic Peptide 25 pg/mL (<100); Troponin-I High Sensitivity < 3.5 ng/L (<3.5-35.0)
--- NOTE | 2021-02-25 14:22 | PHA.MEDREC ---
med rec complete, patient states they do not take any medications Pharmacy Consult ? Medication Reconciliation Pharmacy has completed the medication reconciliation.
[2021-02-25 14:55] LABS: Glucose Urine UA NEG (NEG); Leukocyte Esterase Urine NEG (NEG); Nitrite Urine NEG (NEG); Urine Blood NEG (NEG); Urine Ketones NEG (NEG); Urine Protein NEG (NEG-TRACE)
[2021-02-25 15:01] LABS: Appearance Urine CLEAR; Color Urine YELLOW
[2021-02-25 15:12] LABS: Amphetamine Screen Urine Not Detected (Not Detect); Barbiturates, Urine Not Detected (Not Detect); Benzodiazepines Screen Urine Not Detected (Not Detect); Cannabinoid Screen Urine Not Detected (Not Detect); Cocaine Screen Urine Not Detected (Not Detect); Opiate Screen Urine Not Detected (Not Detect); Phencyclidine Screen Urine Not Detected (Not Detect)
== END 2021-02-25 20:56 | disposition home or self-care (01) ==
PROVIDERS: Physician Assistant Medical; Emergency Provider Emergency Medicine
DX: R42 Dizziness and giddiness (principal); D64.9 Anemia, unspecified; Z20.822 Contact with and (suspected) exposure to COVID-19
CPT/HCPCS: 36415; 70450; 70496; 70498; 70551; 71045; 80053; 80307; 81003; 83735; 83880; 84484; 85025; 85610; 87635; 93005; 96361; 96374; 96375; 99285; 99291; J2405

== ENCOUNTER → 2021-03-30 08:00 | Outpatient (BNVA) | payer MEDICARE, SELFPAY | PROVIDERS: PCP Internal Medicine; Visit Provider Nurse Practitioner Family | DX: Z12.11 Encounter for screening for malignant neoplasm of colon (principal); D64.89 Other specified anemias | CPT/HCPCS: 99202 ==

== ENCOUNTER 2021-04-05 09:19 | Outpatient (REF) | payer MEDICARE, SELFPAY ==
--- NOTE | ~2021-04-05 | XR_ITS ---
EXAMINATION: XR KNEE, BILATERAL CLINICAL INFORMATION: Pain in right knee. COMPARISON: None TECHNIQUE: Four views each knee. FINDINGS: RIGHT KNEE: There is mild reduction in the medial and patellofemoral compartment joint space with periarticular spurring. There are no loose bodies, joint effusion seen. No bony erosive changes. No fracture or subluxation. LEFT KNEE: There is mild reduction in the medial patellofemoral and lateral compartment joint space. There is mild superior patellar spurring. No abnormal joint effusion seen. No bony erosive changes. XR/XR knee LT 4V IMPRESSION: Bilateral degenerative arthritic changes medial and patellofemoral compartments with degenerative spurring medial compartment and anterior superior patellar enthesophyte. No joint effusion or loose body seen.
--- NOTE | ~2021-04-05 | XR_ITS ---
EXAMINATION: XR KNEE, BILATERAL CLINICAL INFORMATION: Pain in right knee. COMPARISON: None TECHNIQUE: Four views each knee. FINDINGS: RIGHT KNEE: There is mild reduction in the medial and patellofemoral compartment joint space with periarticular spurring. There are no loose bodies, joint effusion seen. No bony erosive changes. No fracture or subluxation. LEFT KNEE: There is mild reduction in the medial patellofemoral and lateral compartment joint space. There is mild superior patellar spurring. No abnormal joint effusion seen. No bony erosive changes. XR/XR knee RT 4V IMPRESSION: Bilateral degenerative arthritic changes medial and patellofemoral compartments with degenerative spurring medial compartment and anterior superior patellar enthesophyte. No joint effusion or loose body seen.
== END 2021-04-05 09:20 | disposition home or self-care (01) ==
LOC: HO.XRAY 09:19
PROVIDERS: PCP Physician Assistant; Visit Provider Physician Assistant
DX: M25.561 Pain in right knee (principal); M25.562 Pain in left knee
CPT/HCPCS: 73564

== ENCOUNTER → 2021-04-22 10:09 | Outpatient (BNVA) | payer MEDICARE, SELFPAY | PROVIDERS: PCP Internal Medicine; Visit Provider Urology ==

== ENCOUNTER → 2021-04-22 10:13 | Outpatient (BNVA) | payer MEDICARE, SELFPAY | PROVIDERS: PCP Internal Medicine; Visit Provider Urology | DX: N40.0 Benign prostatic hyperplasia without lower urinary tract symptoms (principal); R39.12 Poor urinary stream | CPT/HCPCS: 51798; 99202 ==

== ENCOUNTER 2021-04-27 10:49 | Day surgery (SDC) | payer MEDICARE, SELFPAY ==
--- NOTE | 2021-04-26 09:23 | HO.ANESPROP2 ---
HPI - Anesthesia Eval Consult details Narrative: 65yo M for Colonoscopy PMF Active Problems Active Problems: All Active Problems (Updated 04/22/21 @ 11:24 by Fede Chua MD) Weak urinary stream (Acute) Colon cancer screening (Acute) Bilateral knee pain (Acute) Anemia (Acute) Vertigo (Acute) BPH (benign prostatic hyperplasia) (Acute) Obesity (BMI 30-39.9) (Acute) Past Medical History Medical History (Updated 04/22/21 @ 11:24 by Fede Chua MD) BPH (benign prostatic hyperplasia) Obesity (BMI 30-39.9) Family History Family History Father No problems noted. Mother Hypertension Diabetes Sister Breast cancer Surgical History Surgical History (Updated 03/30/21 @ 08:09 by DEACON Cruz) H/O colonoscopy History of esophagogastroduodenoscopy (EGD) No pertinent past surgical history Social History Social History Patient Tobacco Use Status: Never used Tobacco service: No Current occupational status: employed Meds Allergies Allergy/AdvReac Type Severity Reaction Status Date / Time No Known Allergies Allergy Verified 04/22/21 10:19 Exam Exam Date and Time: April 26, [id number] Pertinent Lab Results Pertinent Lab Results: Laboratory Tests 02/25/21 02/25/21 13:29 13:29 WBC 12.1 H Hgb 13.4 L Hct 41.0 L Plt Count 270 Sodium 138 Potassium 4.2 Chloride 107 Carbon Dioxide 23 BUN 14 Creatinine 0.95 Narrative Narrative: EKG 02/2021 Vent. Rate : 063 BPM ? ? Atrial Rate : 063 BPM ?? P-R Int : 202 ms? QRS Dur : 096 ms ? ? QT Int : 432 ms ? ? ? P-R-T Axes : -04 015 018 degrees ?? QTc Int : 442 ms ? Normal sinus rhythm Normal ECG No previous ECGs available ? Assessment and Plan Assessment Anesthesia Assessment: Chart Reviewed
[2021-04-27 10:45] VITALS: BMI 33.0
--- NOTE | 2021-04-27 10:56 | MHC.SHP ---
Pre-Procedural Eval Section A Date of Service: 04/27/21 The patient is an INPATIENT: No Changes since office visit: Yes Patient answered all questions; No Cold of Flu in the past 2 weeks, No New Medical Problems and No Changes in Medication The History & Physical has been completed within 30 days and I have reviewed it.: Yes Section B Chief Complaint: Screening Details of Present Illness: Colon cancer screening Allergies: Allergies Allergy/AdvReac Type Severity Reaction Status Date / Time No Known Allergies Allergy Verified 04/22/21 10:19 Plan I have reviewed the history and physical and performed a pertinent physical examination on my patient. No changes have occurred unless specified.
--- NOTE | 2021-04-27 10:58 | W.PM.OPN ---
Operative Note Operative Note Date of Service: 04/27/21 Narrative: Pre-op diagnosis:?Colon cancer screening, anemia Post-op diagnosis:?other (Colon polyps, diverticulosis, hemorrhoids) Procedure:? COLONOSCOPY TILL CECUM WITH SNARE POLYPECTOMY Consent: Indications for the procedure and potential complications of bleeding, perforation, reaction to medications and missed diagnosis were discussed with the patient and informed consent was obtained. Instrument: Olympus PCF H 190 L variable stiffness pediatric colonoscope Monitoring: Vital signs and clinical assessment, intermittent blood pressure monitoring, continuous EKG monitoring, Pulse oximetry and Carbon Dioxide monitoring were done throughout the procedure. Colon withdrawl time was 22 minutes. Procedure: The patient was placed in the left lateral decubitis position and pre-procedure medications were administered. After a digital rectal examination of the ano-rectum, the video colonoscope was inserted into the rectum and advanced through the colon to the ICV. The colonoscope was slowly withdrawn in a retrograde panoramic fashion and the colon mucosa was carefully examined including a retroflexed view of the rectum. Findings and interventions are described below. Procedure Difficulty:? Colon was long and tortuous and there was some loop formation. Patient was placed in the supine position with application of abdominal pressure to intubate cecum.? Cecum was partially visulaized across the ICV and appeared normal.] Findings: Terminal Ileum: Not evaluated Cecum:? Partially evaluated Ascending Colon:? Normal Transverse Colon:? Normal Descending Colon:? Normal Sigmoid Colon:? A 7-8 mm sessile polyp removed with a cold snare.? Moderate diverticulosis Rectum:? Normal Ano-rectum:? Moderate internal hemorrhoids Colon preparation:? Good? Impression and Post Procedure Diagnosis: Colonoscopy Findings: One small polyp removed Moderate diverticulosis seen in the sigmoid colon Moderate hemorrhoids on retroflexed exam. No source found for anemia. Plan: Await pathology results Patient has an appointment on 05/25/21 in the [facility] with ? Charley Jacob FNP-[facility]. Consider further evaluation of anemia with repeat CBC, iron studies and stool occult blood. If pt is still anemic, advise further evaluation with an EGD and a Capsule study. Repeat Colonoscopy interval based on path results - in 5 years if polyps are adenomatous and 10 years if polyps are hyperplastic. Above findings were reviewed with the patient and colon polyps and diverticulosis handouts were given in the discharge area Surgeon:?Herminia Perez MD Anesthesia:?MAC (Dr Sims) Was an Data Processing Manager used for this Procedure?:?Yes Data Processing Manager:?Rosalia Wagner Estimated blood loss (mL):?0 Pathology:?other ( A. sigmoid polyp) Condition:?stable Disposition:?PACU
[2021-04-27 11:00] VITALS: BP 144/86; PULSE 73; RESP 18; TEMP 36.9; O2SAT 98
[2021-04-27] MEDS: Lactated Ringers 1,000 ML 100 ML IVCONT (11:08)
[2021-04-27 12:42] VITALS: BP 99/55; PULSE 69; RESP 18; TEMP 36.2; O2SAT 97
[2021-04-27 12:57] VITALS: BP 157/95; PULSE 69; RESP 17; TEMP 36.2; O2SAT 98
== END 2021-04-27 13:35 | disposition home or self-care (01) ==
PROVIDERS: PCP Physician Assistant; Visit Provider Internal Medicine Gastroenterology
PROC: 0DJD8ZZ Inspection of Lower Intestinal Tract, Via Natural or Artificial Opening Endoscopic (ICD-10-PCS; CPT 45378; principal; 2021-04-27 11:40)
DX: Z12.11 Encounter for screening for malignant neoplasm of colon (principal); D12.5 Benign neoplasm of sigmoid colon; K57.30 Diverticulosis of large intestine without perforation or abscess without bleeding; K64.8 Other hemorrhoids; D64.9 Anemia, unspecified; N40.0 Benign prostatic hyperplasia without lower urinary tract symptoms; E66.9 Obesity, unspecified; Z68.33 Body mass index [BMI] 33.0-33.9, adult; Z79.899 Other long term (current) drug therapy
CPT/HCPCS: 45385; 88305

== ENCOUNTER → 2021-06-04 08:46 | Outpatient (BNVA) | payer MEDICARE, SELFPAY | PROVIDERS: PCP Physician Assistant; Visit Provider Urology | DX: N40.0 Benign prostatic hyperplasia without lower urinary tract symptoms (principal); R39.12 Poor urinary stream | CPT/HCPCS: Q3014 ==

== ENCOUNTER 2021-06-07 08:32 | Outpatient (REF) | payer MEDICARE, SELFPAY | END 2021-06-07 08:33 | disposition home or self-care (01) | LOC: HO.HOSX 08:32 | PROVIDERS: Visit Provider Orthopaedic Surgery | DX: Z13.89 Encounter for screening for other disorder (principal) ==

== ENCOUNTER 2021-08-12 11:00 | Outpatient (REF) | payer MEDICARE, SELFPAY | END 2021-08-12 11:01 | disposition home or self-care (01) | LOC: HO.HMGCLDS 11:00 | PROVIDERS: Visit Provider Internal Medicine | DX: Z20.822 Contact with and (suspected) exposure to COVID-19 (principal) | CPT/HCPCS: C9803; U0003; U0005 ==

== ENCOUNTER 2021-12-22 07:21 | Outpatient (REF) | payer OTHER, SELFPAY ==
[2021-12-22 07:41] LABS: MANUAL DIFF FLAG NO
[2021-12-22 08:40] LABS: Basophils Absolute Auto 0.1 X10*3/uL (0.0-0.2); Basophils Percent Auto 0.9 % (0-2); Eosinophils Absolute Auto 0.3 X10*3/uL (0.0-0.4); Hematocrit 45.9 % (42.0-52.0); Hemoglobin 15.2 g/dl (14.0-18.0); Imm Gran Abs Auto 0.03 X10*3/uL (0.00-0.03); Imm Gran Pct Auto 0.4 % (0.0-0.4); Immature Retic Fraction 11.4 % (2.3-13.4); Lymphocytes Absolute Auto 2.5 X10*3/uL (1.2-4.9); Lymphocytes Percent Auto 29.2 % (20-40); Mean Corpuscular HGB Conc 33.1 g/dl (31.0-36.0); Mean Corpuscular Hemoglobin 30.5 pg (27.0-33.0); Mean Corpuscular Volume 92.2 fL (80.0-98.0); Mean Platelet Volume 10.2 fL (9.4-12.4); Monocytes Absolute Auto 0.9 X10*3/uL (0.1-1.2); Monocytes Percent Auto 10.9 % (2-11); Neutrophils Absolute Auto 4.6 x10*3/uL (2.0-8.3); Neutrophils Percent Auto 54.6 % (45-73); Platelet Count 275 X10*3/uL (160-400); Red Blood Count 4.98 X10*6/uL (4.60-5.80); Red Cell Distribution Width 13.3 % (11.0-16.0); Retic HGB Equivalent 35.8 pg (30.0-35.0); Reticulocyte Percent 1.2 % (0.5-1.8); White Blood Count 8.5 X10*3/uL (4.8-10.8)
[2021-12-22 09:00] LABS: Alanine Aminotransferase 13 U/L (0-40); Alkaline Phosphatase 66 U/L (39-117); Anion Gap 12 (12-20); Aspartate Amino Transferase 12 U/L (5-37); Bilirubin Total 0.4 mg/dL (0.0-1.0); Blood Urea Nitrogen 14 mg/dL (9-16); Calcium 9.5 mg/dL (8.4-10.2); Carbon Dioxide 27 mmol/L (22-29); Chloride 105 mmol/L (96-108); Cholesterol 208 mg/dL; Estimated Glomerular Filt Rate > 60; Glucose Random 118 mg/dL (60-115); HDL Cholesterol 44 mg/dL; Iron 84 mcg/dL (45-160); LDL Cholesterol Calculated 148 mg/dl; Percent Iron Saturation 25 % (15-50); Potassium 4.6 mmol/L (3.3-5.1); Sodium 139 mmol/L (135-145); Total Iron Binding Capacity 332 mcg/dL (228-428); Total Protein 7.3 g/dL (6.5-8.0); Triglycerides 80 mg/dL; Unsaturated Iron Binding 248 ug/dL
[2021-12-22 09:23] LABS: Ferritin 160 ng/mL (20-250); Free T4 (Free Thyroxine) 0.99 ng/dL (0.71-1.85); Prostate Specific Antigen Scr 2.45 ng/mL (<0.05-4.0); Thyroid Stimulating Hormone 5.31 uIU/mL (0.32-4.0)
[2021-12-22 09:32] LABS: Folate 11.3 ng/mL (> or = 4.0); Vitamin B12 252 pg/mL (200-900)
== END 2021-12-22 07:22 | disposition home or self-care (01) ==
LOC: HO.LAB 07:21
PROVIDERS: Physician Assistant; PCP Internal Medicine; Visit Provider Internal Medicine
DX: D50.9 Iron deficiency anemia, unspecified (principal); D64.89 Other specified anemias; E66.9 Obesity, unspecified; N40.0 Benign prostatic hyperplasia without lower urinary tract symptoms; E78.00 Pure hypercholesterolemia, unspecified; Z12.5 Encounter for screening for malignant neoplasm of prostate
CPT/HCPCS: 36415; 80053; 80061; 82607; 82728; 82746; 83540; 84153; 84439; 84443; 85025; 85045

== ENCOUNTER 2022-09-12 07:01 | Outpatient (REF) | payer OTHER, SELFPAY ==
--- NOTE | ~2022-09-12 | XR_ITS ---
EXAMINATION: XR HIP, RIGHT CLINICAL INFORMATION: Hip pain COMPARISON: None TECHNIQUE: Two views of the right hip. FINDINGS: Mild right hip arthritis, mild joint space loss. No acute fracture or dislocation. Visualized right hemipelvis is intact. Anteroinferior iliac spine spurring. No abnormal soft tissue calcification. XR/XR hip RT min 2V IMPRESSION: Mild right hip arthritis.
--- NOTE | ~2022-09-12 | XR_ITS ---
EXAMINATION: XR SHOULDER, RIGHT CLINICAL INFORMATION: Shoulder pain COMPARISON: X-ray 03/10/2020 TECHNIQUE: AP external rotation, Grashey, scapular Y, and axillary views of the right shoulder. FINDINGS: Diffuse bone demineralization. No fracture. Glenohumeral and acromioclavicular alignment is anatomic with normal joint space. Mild-moderate acromioclavicular arthritis No abnormal soft tissue calcifications. XR/XR shoulder RT min 2V IMPRESSION: Mild-moderate acromioclavicular arthritis.
[2022-09-12 07:20] LABS: MANUAL DIFF FLAG NO
[2022-09-12 07:46] LABS: Basophils Absolute Auto 0.1 X10*3/uL (0.0-0.2); Basophils Percent Auto 0.8 % (0-2); Eosinophils Absolute Auto 0.2 X10*3/uL (0.0-0.4); Eosinophils Percent Auto 2.6 % (0-4); Hematocrit 46.2 % (42.0-52.0); Hemoglobin 15.5 g/dl (14.0-18.0); Imm Gran Abs Auto 0.03 X10*3/uL (0.00-0.03); Imm Gran Pct Auto 0.3 % (0.0-0.4); Lymphocytes Absolute Auto 2.9 X10*3/uL (1.2-4.9); Lymphocytes Percent Auto 32.1 % (20-40); Mean Corpuscular HGB Conc 33.5 g/dl (31.0-36.0); Mean Corpuscular Hemoglobin 30.6 pg (27.0-33.0); Mean Corpuscular Volume 91.1 fL (80.0-98.0); Mean Platelet Volume 9.6 fL (9.4-12.4); Monocytes Absolute Auto 0.9 X10*3/uL (0.1-1.2); Monocytes Percent Auto 10.3 % (2-11); Neutrophils Absolute Auto 4.8 x10*3/uL (2.0-8.3); Neutrophils Percent Auto 53.9 % (45-73); Platelet Count 301 X10*3/uL (160-400); Red Blood Count 5.07 X10*6/uL (4.60-5.80); Red Cell Distribution Width 13.2 % (11.0-16.0); White Blood Count 8.9 X10*3/uL (4.8-10.8)
[2022-09-12 08:06] LABS: Estimated Average Glucose 123 mg/dL; Hemoglobin A1c % 5.9 %
[2022-09-12 08:18] LABS: Alanine Aminotransferase 18 U/L (0-40); Albumin Level 4.1 g/dL (3.5-5.0); Alkaline Phosphatase 79 U/L (39-117); Anion Gap 14 (12-20); Aspartate Amino Transferase 15 U/L (5-37); Blood Urea Nitrogen 18 mg/dL (9-16); Calcium 9.5 mg/dL (8.4-10.2); Carbon Dioxide 26 mmol/L (22-29); Chloride 106 mmol/L (96-108); Cholesterol 210 mg/dL; Estimated Glomerular Filt Rate > 60; Glucose Random 111 mg/dL (60-115); HDL Cholesterol 43 mg/dL; Iron 107 mcg/dL (45-160); LDL Cholesterol Calculated 141 mg/dl; Percent Iron Saturation 35 % (15-50); Potassium 4.5 mmol/L (3.3-5.1); Sodium 141 mmol/L (135-145); Total Iron Binding Capacity 305 mcg/dL (228-428); Total Protein 7.2 g/dL (6.5-8.0); Triglycerides 130 mg/dL; Unsaturated Iron Binding 198 ug/dL
[2022-09-12 08:46] LABS: Folate 11.5 ng/mL (> or = 4.0); Free T4 (Free Thyroxine) 1.07 ng/dL (0.71-1.85); Thyroid Stimulating Hormone 5.63 uIU/mL (0.32-4.0); Vitamin B12 253 pg/mL (200-900)
== END 2022-09-12 07:02 | disposition home or self-care (01) ==
LOC: HO.XRAY 07:01
PROVIDERS: PCP Internal Medicine; Visit Provider Internal Medicine
DX: M25.551 Pain in right hip (principal); M25.511 Pain in right shoulder; R73.01 Impaired fasting glucose; R79.89 Other specified abnormal findings of blood chemistry; D64.89 Other specified anemias; E78.00 Pure hypercholesterolemia, unspecified
CPT/HCPCS: 36415; 73030; 73502; 80053; 80061; 82607; 82746; 83036; 83540; 84439; 84443; 85025

== ENCOUNTER 2023-06-19 06:51 | Outpatient (REF) | payer OTHER, SELFPAY | END 2023-06-19 06:52 | disposition home or self-care (01) | LOC: HO.LAB 06:51 | PROVIDERS: PCP Internal Medicine; Visit Provider Internal Medicine | DX: Z13.89 Encounter for screening for other disorder (principal) ==